=== PATIENT | female | born 1970 | race African-American/Black ===

== ENCOUNTER 2017-02-02 02:08 | Emergency (ER) | payer MEDICAID ==
[~2017-02-02] VITALS: Ht 160 cm; Wt 103.4 kg
[2017-02-02] MEDS ORDERED: cloNIDine HCL 0.1 MG TAB ONE (02:54)
[2017-02-02] MEDS ORDERED: cloNIDine HCL 0.1 MG TAB PO ONE (03:30)
[2017-02-02 04:43] LABS: Albumin 3.3 g/dL (3.4-5.0); Anion Gap 8 (5-15); Aspartate Aminotransferase 17 U/L (15-37); BUN/Creatinine Ratio 14.4; Blood Urea Nitrogen 14 mg/dL (7-18); Calcium 8.5 mg/dL (8.5-10.1); Carbon Dioxide 28 mmol/L (21-32); Chloride 109 mmol/L (98-107); GFR African American 80 mL/min; GFR Non-African American 66 mL/min; Glucose 91 mg/dL (74-106); Magnesium 2.1 mg/dL (1.6-2.6); Potassium 3.4 mmol/L (3.5-5.1); Sodium 145 mmol/L (136-145)
[2017-02-02 04:48] LABS: Alkaline Phosphatase 131 U/L (45-117); Bilirubin, Total 0.3 mg/dL (0.2-1.0); Total Protein 7.5 g/dL (6.4-8.2)
[2017-02-02 04:51] LABS: Basophils # (auto) 0 uL; Basophils % (auto) 0.2 % (0.0-2.0); CONDITION Y; Eosinophils # (auto) 0.2 uL; Eosinophils % (auto) 1.9 % (0.0-7.0); Hemoglobin 13.6 g/dL (12.2-16.2); Lymphocytes # (auto) 3.1 uL; Lymphocytes % (auto) 28.7 % (10.0-50.0); Mean Corpuscular Hemoglobin 28.7 pg (28.0-32.0); Mean Corpuscular Hgb Conc. 33.9 g/dL (32.0-36.0); Mean Corpuscular Volume 84.7 fL (80.0-100.0); Monocytes # (auto) 0.5 uL; Monocytes % (auto) 5.1 % (0.0-12.0); Neutrophils # (auto) 6.9 uL; Neutrophils % (auto) 64.1 % (37.0-80.0); Platelet Count (auto) 246 10^3/uL (140-450); Red Cell Distribution Width 14.4 % (11.6-16.0); White Blood Cell 10.7 10^3/uL (4.4-10.8)
[2017-02-02] MEDS ORDERED: SODIUM CHLORIDE 0.9% 1,000 ML IV ONE (07:43)
[2017-02-02] MEDS ORDERED: LABETALOL HCL 5 MG/ML ML 20ML VIAL IV ONE (07:45)
[2017-02-02] MEDS ORDERED: FUROSEMIDE 20 MG/2 ML VIAL IV ONE (07:45)
[2017-02-02 09:41] LABS: Urine Bilirubin Negative (Negative); Urine Blood TRACE /uL (Negative); Urine Color Yellow (Yellow); Urine Glucose Normal (Normal); Urine Mucus FEW (None Seen); Urine Nitrite Negative (Negative); Urine RBC 3 /hpf (0 - 4); Urine Squamous Epithelial Cell MOD /hpf (<5); Urine pH 5.5 (5.0-8.0)
[2017-02-02 09:55] LABS: Urine Ketone 1+ (Negative)
[2017-02-02] MEDS ORDERED: POTASSIUM CHL 20 Meq TABLET PO ONE (11:00)
[2017-02-02 11:08] VITALS: BP 131/72
== END 2017-02-02 11:10 | disposition home or self-care (01) ==
LOC: ER 02:09
DX: I10 Essential (primary) hypertension (principal); M62.830 Muscle spasm of back; R51 Headache; E44.1 Mild protein-calorie malnutrition; Z68.41 Body mass index [BMI] 40.0-44.9, adult; E87.6 Hypokalemia; Z90.49 Acquired absence of other specified parts of digestive tract; Z90.710 Acquired absence of both cervix and uterus
CPT/HCPCS: 36415; 70450; 71020; 80053; 81001; 83735; 84484; 85025; 93005; 94761; 96361; 96374; 99285; J1940; J7030

== ENCOUNTER 2023-01-24 11:11 | Emergency (ER) | payer MEDICAID ==
[~2023-01-24] VITALS: Ht 160 cm; Wt 100.4 kg
[2023-01-24] MEDS ORDERED: SODIUM CHLORIDE 0.9% 1,000 ML IV ONE (11:45)
[2023-01-24 12:18] LABS: Basophils # (auto) 0.1 10 ^3/uL (0-0.2); Basophils % (auto) 0.8 % (0.0-2.0); Eosinophils # (auto) 0.2 10 ^3/uL (0-0.8); Eosinophils % (auto) 1.8 % (0.0-7.0); Hematocrit 45.6 % (36.0-46.0); Hemoglobin 15.1 g/dL (12.2-16.2); Lymphocytes # (auto) 3.2 10 ^3/uL (0.4-5.4); Lymphocytes % (auto) 27.9 % (10.0-50.0); Mean Corpuscular Hgb Conc. 33.1 g/dL (32.0-36.0); Mean Corpuscular Volume 84.5 fL (80.0-100.0); Monocytes # (auto) 0.4 10 ^3/uL (0-1.3); Monocytes % (auto) 3.9 % (0.0-12.0); Neutrophils # (auto) 7.4 10 ^3/uL (1.6-8.6); Neutrophils % (auto) 65.6 % (37.0-80.0); Red Cell Distribution Width 14.1 % (11.8-14.3); White Blood Cell 11.3 10^3/uL (4.4-10.8)
[2023-01-24 12:59] LABS: Potassium 3.9 mmol/L (3.5-5.1)
[2023-01-24 13:08] LABS: Albumin 3.6 g/dL (3.4-5.0); BUN/Creatinine Ratio 10.5 (10.0-20.0); Bilirubin, Total 0.4 mg/dL (0.2-1.0); Calcium 9.1 mg/dL (8.5-10.1); Magnesium 2.8 mg/dL (1.6-2.6); Total Protein 7.1 g/dL (6.4-8.2)
[2023-01-24 14:43] LABS: Urine Bacteria FEW /hpf (None Seen); Urine Blood Negative /uL (Negative); Urine Specific Gravity 1.008 (1.001-1.035); Urine WBC <1 /hpf (0 - 5)
[2023-01-24 16:20] VITALS: BP 142/67; PULSE 74; RESP 20; TEMP 98; O2SAT 97
== END 2023-01-24 16:33 | disposition home or self-care (01) ==
LOC: EDBD 11:11 → ER 11:11 → EDUNIT# 11:11 → ER 16:28
DX: R55 Syncope and collapse (principal); I11.0 Hypertensive heart disease with heart failure; I50.9 Heart failure, unspecified; Z90.49 Acquired absence of other specified parts of digestive tract; Z90.710 Acquired absence of both cervix and uterus; Z87.891 Personal history of nicotine dependence
CPT/HCPCS: 36415; 71045; 80053; 81001; 83735; 83880; 84484; 85025; 93005; 96360; 99285; J7030

== ENCOUNTER 2023-07-21 12:57 | Emergency (ER) | payer MEDICAID ==
[~2023-07-21] VITALS: Ht 165.1 cm; Wt 102.0 kg
[2023-07-21 13:28] LABS: Urine Epithelial Cast None Seen /hpf (<5)
[2023-07-21 13:53] LABS: Basophils # (auto) 0 10 ^3/uL (0-0.2); Basophils % (auto) 0.4 % (0.0-2.0); Eosinophils # (auto) 0.1 10 ^3/uL (0-0.8); Eosinophils % (auto) 1.4 % (0.0-7.0); Hematocrit 43.4 % (36.0-46.0); Hemoglobin 14.5 g/dL (12.2-16.2); Lymphocytes % (auto) 30.7 % (10.0-50.0); Mean Corpuscular Hemoglobin 27.9 pg (28.0-32.0); Mean Corpuscular Hgb Conc. 33.3 g/dL (32.0-36.0); Mean Corpuscular Volume 83.7 fL (80.0-100.0); Monocytes # (auto) 0.4 10 ^3/uL (0-1.3); Monocytes % (auto) 4.1 % (0.0-12.0); Neutrophils # (auto) 6.2 10 ^3/uL (1.6-8.6); Neutrophils % (auto) 63.4 % (37.0-80.0); Nucleated Red Blood Cells % 0.1 %; Red Blood Cells 5.18 10^6/uL (4.0-5.20); Red Cell Distribution Width 13.7 % (11.8-14.3); White Blood Cell 9.8 10^3/uL (4.4-10.8)
[2023-07-21 13:55] LABS: Urine Bacteria FEW /hpf (None Seen); Urine Blood 1+ /uL (Negative); Urine Clarity Clear (Clear); Urine Color Yellow (Yellow); Urine Protein, UAD Negative (Negative); Urine Specific Gravity 1.019 (1.001-1.035); Urine Urobilinogen Normal (Negative); Urine WBC 1 /hpf (0 - 5)
[2023-07-21 14:01] LABS: Chloride 109 mmol/L (98-107); Potassium 3.9 mmol/L (3.5-5.1); Sodium 141 mmol/L (136-145)
[2023-07-21 14:02] LABS: Anion Gap 5 (5-15); Carbon Dioxide 27 mmol/L (20-30)
[2023-07-21 14:03] LABS: Calcium 9.3 mg/dL (8.7-10.4)
[2023-07-21 14:07] LABS: BUN/Creatinine Ratio 11.1 (10.0-20.0); Blood Urea Nitrogen 8 mg/dL (9-23); Glucose 86 mg/dL (74-106)
[2023-07-21] MEDS ORDERED: KETOROLAC TROMETH 30 MG/ML 1ML VIAL IV ONE (14:15)
[2023-07-21] MEDS ORDERED: ONDANSETRON HCL 4 MG/2 ML VIAL IV ONE (14:15)
[2023-07-21] MEDS ORDERED: CEPH250C PO (17:07)
[2023-07-21] MEDS ORDERED: IBU600T PO (17:08)
[2023-07-21 17:47] VITALS: BP 162/71; PULSE 78; RESP 18; TEMP 97.8; O2SAT 100
== END 2023-07-21 17:50 | disposition home or self-care (01) ==
LOC: ER 12:57
DX: R31.9 Hematuria, unspecified (principal); I11.0 Hypertensive heart disease with heart failure; I50.9 Heart failure, unspecified; F17.210 Nicotine dependence, cigarettes, uncomplicated; Z86.2 Personal history of diseases of the blood and blood-forming organs and certain disorders involving the immune mechanism; Z98.890 Other specified postprocedural states
CPT/HCPCS: 36415; 74176; 80048; 81001; 85025; 96374; 96375; 99285; J1885; J2405

== ENCOUNTER 2023-10-31 14:56 | Emergency (ER) | payer MEDICAID ==
[~2023-10-31] VITALS: Ht 160 cm; Wt 100.4 kg
[~2023-10-31 14:56] MED LIST: CEPH250C PO; IBU600T PO
[2023-10-31 15:31] LABS: Basophils # (auto) 0 10 ^3/uL (0-0.2); Basophils % (auto) 0.3 % (0.0-2.0); Eosinophils # (auto) 0.2 10 ^3/uL (0-0.8); Eosinophils % (auto) 1.5 % (0.0-7.0); Hematocrit 45.5 % (36.0-46.0); Hemoglobin 14.8 g/dL (12.2-16.2); Lymphocytes # (auto) 4.1 10 ^3/uL (0.4-5.4); Lymphocytes % (auto) 34.9 % (10.0-50.0); Mean Corpuscular Hemoglobin 27.5 pg (28.0-32.0); Mean Corpuscular Hgb Conc. 32.6 g/dL (32.0-36.0); Mean Corpuscular Volume 84.4 fL (80.0-100.0); Monocytes # (auto) 0.7 10 ^3/uL (0-1.3); Monocytes % (auto) 5.9 % (0.0-12.0); Neutrophils # (auto) 6.7 10 ^3/uL (1.6-8.6); Neutrophils % (auto) 57.4 % (37.0-80.0); Nucleated Red Blood Cells % 0.1 %; Red Blood Cells 5.38 10^6/uL (4.0-5.20); Red Cell Distribution Width 14.1 % (11.8-14.3); White Blood Cell 11.7 10^3/uL (4.4-10.8)
[2023-10-31 15:49] LABS: INR 0.95 (0.9-1.15); Partial Thromboplastin Time 28.8 SEC (24.5-34.5); Prothrombin Time 10.1 sec (9.3-11.8)
[2023-10-31 15:52] LABS: Alanine Aminotransferase 14 U/L (7-40); Albumin 4.3 g/dL (3.2-4.8); Alkaline Phosphatase 133 U/L (46-116); Anion Gap 8 (5-15); Aspartate Aminotransferase 25 U/L (13-40); BUN/Creatinine Ratio 18.1 (10.0-20.0); Blood Urea Nitrogen 13 mg/dL (9-23); Calcium 9.9 mg/dL (8.5-10.1); Carbon Dioxide 27 mmol/L (20-30); Chloride 107 mmol/L (98-107); Glucose 82 mg/dL (74-106); Sodium 142 mmol/L (136-145)
[2023-10-31 15:53] LABS: Bilirubin, Total 0.3 mg/dL (0.2-1.0); Total Protein 6.9 g/dL (5.7-8.2)
[2023-10-31 16:00] VITALS: PULSE 70; RESP 18; O2SAT 98
[2023-10-31 16:10] LABS: Urine Bacteria None Seen /hpf (None Seen)
[2023-10-31 16:24] LABS: Urine Blood Negative /uL (Negative); Urine Clarity Clear (Clear); Urine Color Light-Yellow (Yellow); Urine Protein, UAD Negative (Negative); Urine Specific Gravity 1.023 (1.001-1.035); Urine Urobilinogen Normal (Negative); Urine WBC <1 /hpf (0 - 5)
[2023-10-31] MEDS: LORazepam 0.5 MG TAB PO ONE (16:37)
[2023-10-31 18:00] VITALS: BP 123/59; PULSE 66; RESP 20; O2SAT 100
== END 2023-10-31 18:47 | disposition home or self-care (01) ==
LOC: ER 14:56
DX: F41.8 Other specified anxiety disorders (principal); R07.89 Other chest pain; I11.0 Hypertensive heart disease with heart failure; I50.9 Heart failure, unspecified; F17.210 Nicotine dependence, cigarettes, uncomplicated; Z86.2 Personal history of diseases of the blood and blood-forming organs and certain disorders involving the immune mechanism; Z90.49 Acquired absence of other specified parts of digestive tract; Z90.710 Acquired absence of both cervix and uterus; Z79.1 Long term (current) use of non-steroidal anti-inflammatories (NSAID); Z79.899 Other long term (current) drug therapy
CPT/HCPCS: 36415; 71045; 80053; 81001; 84484; 85025; 85610; 85730; 93005

== ENCOUNTER 2023-12-01 06:30 | Inpatient (IN) | payer MEDICAID ==
[~2023-12-01] VITALS: Ht 160 cm; Wt 105.6 kg
[2023-12-01] VITALS (20 sets, daily range): BP systolic 108–165; BP diastolic 56–92; PULSE 50–74; RESP 12–20; TEMP 97.5–98.1; O2SAT 98–100
[~2023-12-01 06:30] MED LIST changes: +AMLO1TAB23 PO; +ASPI-543 PO; -CEPH250C PO; +HYDR-4798 PO; +HYDRX10T PO; -IBU600T PO; +LOSA-534 PO; +METO-158 PO; +NITR0.4S29 SL; +POTA8TAB38 PO; +TRIA37.586 PO
[2023-12-01] MEDS: LIDOCAINE 2%HCL (LOCAL ANESTH.) INJ 20ML MDV ONE (07:32)
[2023-12-01] MEDS: IOHEXOL 350 MG/ML 100ML IJ ONE (07:32)
[2023-12-01] MEDS: HEPARIN IN NS 1000Units/500mL 1,500 ML ONE (07:32)
[2023-12-01] MEDS: ANGIOMAX 250 MG VIAL IV ONE (08:04)
[2023-12-01] MEDS: VERAPAMIL 2.5MG/ML INJ 2ML VIAL IV ONE (08:04)
[2023-12-01] MEDS: HEPARIN SODIUM (PORCINE) 5000 UNITS/ML 1ML VIAL ONE (08:04)
[2023-12-01] MEDS: fentaNYL CITRATE 100 MCG/2 ML VL ONE (08:05)
[2023-12-01] MEDS: SODIUM CHL 0.9% 50 ML ONE (08:05)
[2023-12-01] MEDS: MIDAZOLAM HCL 2MG/2ML 2ml VIAL (1mg/ml) ONE (08:05)
[2023-12-01] MEDS: IODIXANOL 320MG/ML 100ML BTL IV ONE (09:18)
[2023-12-01] MEDS: ATROPINE SULF 1 MG/10ml SYR ONE (09:18)
[2023-12-01] MEDS: TICAGRELOR 90 MG TAB ONE (09:18)
[2023-12-01] MEDS: HYDROmorphone HCL 2 MG/ML VL/or syr ONE (09:19)
[2023-12-01] MEDS: hydrALAZINE HCL 20 MG/ML VL ONE (09:19)
[2023-12-01] MEDS: NITROGLYCERIN 0.4MG/DOSE SPRAY 4.9GM ONE (09:19)
[2023-12-01] MEDS: ASPirin 325 MG TAB ONE (09:19)
[2023-12-01] MEDS ORDERED: ALBUTEROL SULF 2.5 MG/0.5ML(0.5%) NEB SOLN NEB PRN (10:00)
[2023-12-01] MEDS: ASPirin-EC 81 mg tab PO SCH (10:00)
[2023-12-01] MEDS ORDERED: IPRATROPIUM BROM 0.5 MG/2.5ML INH SOL NEB PRN (10:00)
[2023-12-01] MEDS: LOSARTAN POTASSIUM 50 MG TAB PO SCH (10:40)
[2023-12-01] MEDS: HYDROcodone-ACET 10/325MG TAB PO PRN (10:40)
[2023-12-01] MEDS: SODIUM CHLORIDE 0.9% 1,000 ML IV SCH (11:29)
[2023-12-01] MEDS: hydrOXYzine HCL 10 MG TAB PO SCH (14:32)
[2023-12-01] MEDS: ONDANSETRON HCL 4 MG/2 ML VIAL IV PRN (18:05)
[2023-12-01] MEDS: MORPHINE SULFATE INJ 2 MG/ml SYRG IV PRN (18:06)
[2023-12-01] MEDS: TICAGRELOR 90 MG TAB PO SCH (21:21)
[2023-12-01] MEDS: ATORVASTATIN 20 MG TAB PO SCH (21:22)
[2023-12-01] MEDS: THROAT LOZENGES(CEPASTAT) MT PRN (22:16)
[2023-12-02] VITALS (9 sets, daily range): BP systolic 107–148; BP diastolic 48–69; PULSE 56–64; RESP 18–20; TEMP 36.8; O2SAT 96–100
[2023-12-02] MEDS: NITROGLYCERIN 0.4 MG SL TAB SL PRN (04:02)
[2023-12-02] MEDS: ACETAMINOPHEN 500 MG TAB PO PRN (04:27)
[2023-12-02 06:53] LABS: Hematocrit 39.8 % (36.0-46.0); Hemoglobin 13.3 g/dL (12.2-16.2)
[2023-12-02 07:04] LABS: Chloride 109 mmol/L (98-107); Potassium 3.8 mmol/L (3.5-5.1); Sodium 141 mmol/L (136-145)
[2023-12-02 07:05] LABS: Anion Gap 7 (5-15); Calcium 9.1 mg/dL (8.5-10.1); Carbon Dioxide 25 mmol/L (20-30)
[2023-12-02 07:10] LABS: Blood Urea Nitrogen 12 mg/dL (9-23); Glucose 97 mg/dL (74-106); Triglycerides 95 mg/dL (< 150)
[2023-12-02 07:11] LABS: LDL Cholesterol 135 mg/dL (< 100)
[2023-12-02 07:12] LABS: Cholesterol 212 mg/dL (< 200); HDL Cholesterol 56 mg/dL (40-59)
[2023-12-02] MEDS: METOPROLOL TARTRATE 50 MG TAB PO SCH (10:00)
[2023-12-02] MEDS: ASPirin 81 mg TAB PO SCH (10:13)
[2023-12-02] MEDS: MORPHINE SULFATE INJ 2 MG/ml SYRG IV PRN (15:10)
[2023-12-02] MEDS ORDERED: ASPI1TAB20 PO (15:31)
[2023-12-02] MEDS ORDERED: TICA90TA PO (15:31)
[2023-12-02] MEDS ORDERED: ATOR40TA52 PO (15:31)
[2023-12-02] MEDS ORDERED: ALBU108A5 INH (16:40)
[2023-12-02] MEDS ORDERED: DIVA1TAB59 PO (16:40)
[2023-12-02] MEDS ORDERED: ALBU0.08 NEB (16:40)
[2023-12-02] MEDS ORDERED: CHOL100029 PO (16:40)
== END 2023-12-02 19:06 | disposition home or self-care (01) | DRG 175 ==
LOC: CATH 06:30 → TELE 10:05 → TELE-WESTW 13:30
PROVIDERS: ADMIT Nurse Practitioner Acute Care; ATTEND Nurse Practitioner Acute Care
PROC: 027035Z Dilation of Coronary Artery, One Artery with Two Drug-eluting Intraluminal Devices, Percutaneous Approach (ICD-10-PCS; principal; 2023-12-01)
PROC: 4A023N7 Measurement of Cardiac Sampling and Pressure, Left Heart, Percutaneous Approach (ICD-10-PCS; 2023-12-01)
PROC: B211YZZ Fluoroscopy of Multiple Coronary Arteries using Other Contrast (ICD-10-PCS; 2023-12-01)
DX: I25.110 Atherosclerotic heart disease of native coronary artery with unstable angina pectoris (principal); E66.9 Obesity, unspecified; I10 Essential (primary) hypertension; E78.5 Hyperlipidemia, unspecified; J44.9 Chronic obstructive pulmonary disease, unspecified; F31.9 Bipolar disorder, unspecified; F17.210 Nicotine dependence, cigarettes, uncomplicated; Z82.49 Family history of ischemic heart disease and other diseases of the circulatory system; Z63.4 Disappearance and death of family member; Z79.02 Long term (current) use of antithrombotics/antiplatelets; Z68.41 Body mass index [BMI] 40.0-44.9, adult
CPT/HCPCS: 36415; 80048; 80061; 85014; 85018; 92928; 93005; 93458; 99152; 99153; G0378; J2250; J2405; Q9967

== ENCOUNTER 2023-12-05 02:43 | Emergency (ER) | payer MEDICAID ==
[~2023-12-05] VITALS: Ht 160 cm; Wt 101.0 kg
[~2023-12-05 02:43] MED LIST changes: +ALBU0.08 NEB; +ALBU108A5 INH; -ASPI-543 PO; +ASPI1TAB20 PO; +ATOR40TA52 PO; +CHOL100029 PO; +DIVA1TAB59 PO; +TICA90TA PO
[2023-12-05 03:05] VITALS: BP 171/94; PULSE 75; RESP 18; O2SAT 99
[2023-12-06] MEDS ORDERED: ALPR0.25 PO ×2 (17:46→17:58)
[2023-12-06] MEDS ORDERED: PANT40TA2 PO (17:46)
[2023-12-06] MEDS ORDERED: ALPR0.5T PO (19:26)
[2023-12-06] MEDS ORDERED: OMEP-335 PO (19:28)
[2023-12-07] MEDS ORDERED: HYDR-3682 PO (15:38)
== END 2023-12-05 04:00 | disposition left against medical advice (07) ==
LOC: ER 02:43
DX: R07.9 Chest pain, unspecified (principal); F41.9 Anxiety disorder, unspecified; I11.0 Hypertensive heart disease with heart failure; I50.9 Heart failure, unspecified; F17.210 Nicotine dependence, cigarettes, uncomplicated; Z90.49 Acquired absence of other specified parts of digestive tract; Z90.710 Acquired absence of both cervix and uterus
CPT/HCPCS: 93005

== ENCOUNTER 2023-12-05 20:10 | Inpatient (IN) | payer MEDICAID ==
[~2023-12-05] VITALS: Ht 160 cm; Wt 105.0 kg
[2023-12-05 22:04] LABS: Basophils # (auto) 0.1 10 ^3/uL (0-0.2); Basophils % (auto) 0.5 % (0.0-2.0); Eosinophils # (auto) 0.3 10 ^3/uL (0-0.8); Eosinophils % (auto) 2.5 % (0.0-7.0); Hematocrit 42.9 % (36.0-46.0); Hemoglobin 14.2 g/dL (12.2-16.2); Lymphocytes % (auto) 25.4 % (10.0-50.0); Mean Corpuscular Hemoglobin 27.9 pg (28.0-32.0); Mean Corpuscular Hgb Conc. 33.2 g/dL (32.0-36.0); Mean Corpuscular Volume 84.2 fL (80.0-100.0); Monocytes # (auto) 0.7 10 ^3/uL (0-1.3); Monocytes % (auto) 5.6 % (0.0-12.0); Neutrophils # (auto) 7.7 10 ^3/uL (1.6-8.6); White Blood Cell 11.7 10^3/uL (4.4-10.8)
[2023-12-05 22:10] LABS: Chloride 109 mmol/L (98-107); Potassium 3.8 mmol/L (3.5-5.1); Sodium 142 mmol/L (136-145)
[2023-12-05 22:11] LABS: Anion Gap 8 (5-15); Calcium 9.9 mg/dL (8.7-10.4); Carbon Dioxide 25 mmol/L (20-30)
[2023-12-05 22:16] LABS: BUN/Creatinine Ratio 14.8 (10.0-20.0); Blood Urea Nitrogen 12 mg/dL (9-23); Glucose 88 mg/dL (74-106); Lipase 31 U/L (12-53)
[2023-12-05 22:23] LABS: INR 0.97 (0.9-1.15); Prothrombin Time 10.3 sec (9.3-11.8)
[2023-12-06 00:13] VITALS: PULSE 65; RESP 12; O2SAT 98
[2023-12-06] MEDS: ALPRAZolam 0.5 MG TAB PO ONE (00:19)
[2023-12-06] MEDS ORDERED: DOCUSATE SOD 100 MG CAP PO PRN (01:15)
[2023-12-06] MEDS ORDERED: HYDROcodone-ACET 5/325MG TAB PO PRN (01:15)
[2023-12-06] MEDS ORDERED: ACETAMINOPHEN 325 MG TAB PO PRN (01:15)
[2023-12-06] MEDS ORDERED: NITROGLYCERIN 0.4 MG SL TAB SL PRN (01:15)
[2023-12-06] MEDS ORDERED: hydrALAZINE HCL 20 MG/ML VL IV PRN (01:15)
[2023-12-06 04:45] LABS: Basophils # (auto) 0 10 ^3/uL (0-0.2); Basophils % (auto) 0.4 % (0.0-2.0); Eosinophils # (auto) 0.3 10 ^3/uL (0-0.8); Eosinophils % (auto) 3.1 % (0.0-7.0); Hematocrit 38.6 % (36.0-46.0); Lymphocytes # (auto) 2.9 10 ^3/uL (0.4-5.4); Lymphocytes % (auto) 28.5 % (10.0-50.0); Mean Corpuscular Hemoglobin 28.4 pg (28.0-32.0); Mean Corpuscular Hgb Conc. 33.8 g/dL (32.0-36.0); Mean Corpuscular Volume 84.2 fL (80.0-100.0); Monocytes # (auto) 0.6 10 ^3/uL (0-1.3); Monocytes % (auto) 5.9 % (0.0-12.0); Neutrophils # (auto) 6.3 10 ^3/uL (1.6-8.6); Neutrophils % (auto) 62.1 % (37.0-80.0); Red Blood Cells 4.58 10^6/uL (4.0-5.20); Red Cell Distribution Width 13.5 % (11.8-14.3); White Blood Cell 10.1 10^3/uL (4.4-10.8)
[2023-12-06 04:51] LABS: Chloride 111 mmol/L (98-107); Potassium 3.6 mmol/L (3.5-5.1); Sodium 144 mmol/L (136-145)
[2023-12-06 04:52] LABS: Anion Gap 8 (5-15); Calcium 9.5 mg/dL (8.7-10.4); Carbon Dioxide 25 mmol/L (20-30)
[2023-12-06 04:57] LABS: BUN/Creatinine Ratio 17.1 (10.0-20.0); Blood Urea Nitrogen 12 mg/dL (9-23); Glucose 107 mg/dL (74-106)
[2023-12-06] MEDS: LORazepam 0.5 MG TAB PO PRN (05:43)
[2023-12-06 07:30] VITALS: PULSE 57; RESP 14; TEMP 98.7; O2SAT 98
[2023-12-06] MEDS: METOPROLOL TARTRATE 25 MG TAB PO SCH (10:38)
[2023-12-06] MEDS: ATORVASTATIN 20 MG TAB PO SCH (10:38)
[2023-12-06] MEDS: amLODIPine BESYLATE 5 MG TAB PO SCH (10:39)
[2023-12-06] MEDS: ASPirin 81 mg TAB PO SCH (10:39)
[2023-12-06] MEDS: ONDANSETRON HCL 4 MG/2 ML VIAL IV PRN (10:40)
[2023-12-06] MEDS: MORPHINE SULFATE INJ 2 MG/ml SYRG IV PRN (10:40)
[2023-12-06 11:59] LABS: Urine Bacteria FEW /hpf (None Seen); Urine Blood Negative /uL (Negative); Urine Clarity Clear (Clear); Urine Color Yellow (Yellow); Urine Mucus FEW (None Seen); Urine Protein, UAD TRACE (Negative); Urine Urobilinogen Normal (Negative); Urine WBC 2 /hpf (0 - 5); Urine pH 5.5 (5.0-9.0)
[2023-12-06] MEDS ORDERED: PANT40TA2 PO (17:46)
[2023-12-06] MEDS ORDERED: ALPR0.25 PO ×2 (17:46→17:58)
[2023-12-06 18:40] VITALS: BP 126/53; PULSE 56; RESP 19; O2SAT 99
[2023-12-06] MEDS ORDERED: ALPR0.5T PO (19:26)
[2023-12-06] MEDS ORDERED: OMEP-335 PO (19:28)
[2023-12-06] MEDS ORDERED: TICAGRELOR 90 MG TAB PO SCH (22:00)
[2023-12-07] MEDS ORDERED: HYDR-3682 PO (15:38)
== END 2023-12-06 18:40 | disposition home or self-care (01) | DRG 190 ==
LOC: ER 20:10 → TELE 12-06 01:29 → UNDODEPER 12-06 18:32
PROVIDERS: ADMIT Internal Medicine; ATTEND Internal Medicine
DX: I25.10 Atherosclerotic heart disease of native coronary artery without angina pectoris (principal); I21.A1 Myocardial infarction type 2; E11.9 Type 2 diabetes mellitus without complications; I16.0 Hypertensive urgency; F41.9 Anxiety disorder, unspecified; E66.01 Morbid (severe) obesity due to excess calories; F17.210 Nicotine dependence, cigarettes, uncomplicated; J44.9 Chronic obstructive pulmonary disease, unspecified; E78.5 Hyperlipidemia, unspecified; Z95.5 Presence of coronary angioplasty implant and graft; Z90.710 Acquired absence of both cervix and uterus; Z79.82 Long term (current) use of aspirin; Z90.49 Acquired absence of other specified parts of digestive tract; Z79.4 Long term (current) use of insulin; Z68.41 Body mass index [BMI] 40.0-44.9, adult
CPT/HCPCS: 36415; 80048; 81001; 83690; 84484; 85025; 85610; 93306; G0378; J2405

== ENCOUNTER 2024-01-24 06:36 | Emergency (ER) | payer MEDICAID ==
[~2024-01-24] VITALS: Ht 165.1 cm; Wt 104.8 kg
[~2024-01-24 06:36] MED LIST changes: +ALPR0.25 PO; +ALPR0.5T PO; +HYDR-3682 PO; +OMEP-335 PO; +PANT40TA2 PO
[2024-01-24] MEDS: SODIUM CHLORIDE 0.9% 1,000 ML IV ONE (07:00)
[2024-01-24 07:29] LABS: Basophils # (auto) 0 10 ^3/uL (0-0.2); Basophils % (auto) 0.4 % (0.0-2.0); Eosinophils # (auto) 0.2 10 ^3/uL (0-0.8); Eosinophils % (auto) 1.9 % (0.0-7.0); Hematocrit 42.2 % (36.0-46.0); Hemoglobin 14.5 g/dL (12.2-16.2); Lymphocytes # (auto) 2.7 10 ^3/uL (0.4-5.4); Lymphocytes % (auto) 26.2 % (10.0-50.0); Mean Corpuscular Hemoglobin 28.8 pg (28.0-32.0); Mean Corpuscular Hgb Conc. 34.4 g/dL (32.0-36.0); Mean Corpuscular Volume 83.7 fL (80.0-100.0); Monocytes # (auto) 0.5 10 ^3/uL (0-1.3); Monocytes % (auto) 4.7 % (0.0-12.0); Neutrophils # (auto) 6.8 10 ^3/uL (1.6-8.6); Neutrophils % (auto) 66.8 % (37.0-80.0); Nucleated Red Blood Cells % 0.1 %; Red Blood Cells 5.04 10^6/uL (4.0-5.20); Red Cell Distribution Width 13.6 % (11.8-14.3); White Blood Cell 10.1 10^3/uL (4.4-10.8)
[2024-01-24 07:35] LABS: Alanine Aminotransferase 16 U/L (7-40); Albumin 4.2 g/dL (3.2-4.8); Alkaline Phosphatase 137 U/L (46-116); Anion Gap 9 (5-15); Aspartate Aminotransferase 12 U/L (13-40); BUN/Creatinine Ratio 10.1 (10.0-20.0); Blood Urea Nitrogen 8 mg/dL (9-23); Calcium 9.4 mg/dL (8.7-10.4); Carbon Dioxide 27 mmol/L (20-30); Chloride 105 mmol/L (98-107); Glucose 123 mg/dL (74-106); Potassium 3.5 mmol/L (3.5-5.1); Sodium 141 mmol/L (136-145)
[2024-01-24 07:36] LABS: Bilirubin, Total 0.5 mg/dL (0.2-1.0); Total Protein 7.3 g/dL (5.7-8.2)
[2024-01-24 07:59] VITALS: O2SAT 96
[2024-01-24 08:01] VITALS: PULSE 64
[2024-01-24] MEDS: NITROGLYCERIN 0.4 MG SL TAB SL ONE (08:10)
[2024-01-24] MEDS: ONDANSETRON HCL 4 MG/2 ML VIAL IV ONE (08:10)
[2024-01-24] MEDS: cefTRIAXone 1GM/50ML D5W 50 ML IV ONE (08:11)
[2024-01-24] MEDS: SODIUM CHLORIDE 0.9% 1,000 ML IVB ONE (08:12)
[2024-01-24] MEDS: MORPHINE SULFATE 4 MG/ML SYR/VIAL IV ONE (08:13)
[2024-01-24 12:13] LABS: Urine Bacteria FEW /hpf (None Seen); Urine Blood Negative /uL (Negative); Urine Clarity Clear (Clear); Urine Color Light-Yellow (Yellow); Urine Protein, UAD Negative (Negative); Urine Urobilinogen Normal (Negative); Urine WBC 1 /hpf (0 - 5)
[2024-01-24] MEDS: IOHEXOL 350 MG/ML 100ML IJ ONE (12:21)
[2024-01-24 15:04] VITALS: BP 172/91; PULSE 50; RESP 18
[2024-01-24] MEDS ORDERED: TRAM50TA2 PO (15:26)
[2024-01-24] MEDS ORDERED: CLIN150C PO (15:26)
== END 2024-01-24 16:27 | disposition home or self-care (01) ==
LOC: ER 06:36
DX: I20.9 Angina pectoris, unspecified (principal); R07.89 Other chest pain; K04.7 Periapical abscess without sinus; R79.1 Abnormal coagulation profile; I11.0 Hypertensive heart disease with heart failure; I50.9 Heart failure, unspecified; Z98.61 Coronary angioplasty status; Z86.2 Personal history of diseases of the blood and blood-forming organs and certain disorders involving the immune mechanism; Z90.49 Acquired absence of other specified parts of digestive tract; Z90.710 Acquired absence of both cervix and uterus; Z88.1 Allergy status to other antibiotic agents; Z79.899 Other long term (current) drug therapy
CPT/HCPCS: 36415; 71046; 71275; 80053; 81001; 83735; 84484; 85025; 85379; 93005; 93971; 96361; 96365; 96375; 99285; J0696; J2270; J2405; J7030; Q9967

== ENCOUNTER 2024-03-21 20:57 | Inpatient (IN) | payer MEDICAID ==
[~2024-03-21] VITALS: Ht 160 cm; Wt 109.9 kg
[~2024-03-21 20:57] MED LIST changes: +ATOR80TA PO; +CHOL1TAB30 PO; +CLIN150C PO; +CLOP75TA70 PO; +EVOL140I2 SC; +EZET10TA22 PO; +METO1TAB77 PO; +OMEP1CAP70 PO; +RISP1TAB63 PO; +TRAM50TA2 PO
[2024-03-21 21:38] LABS: Basophils # (auto) 0.1 10 ^3/uL (0-0.2); Basophils % (auto) 0.6 % (0.0-2.0); Eosinophils # (auto) 0.2 10 ^3/uL (0-0.8); Eosinophils % (auto) 2.5 % (0.0-7.0); Hematocrit 43.4 % (36.0-46.0); Hemoglobin 14.9 g/dL (12.2-16.2); Lymphocytes # (auto) 3.3 10 ^3/uL (0.4-5.4); Lymphocytes % (auto) 34.1 % (10.0-50.0); Mean Corpuscular Hgb Conc. 34.3 g/dL (32.0-36.0); Mean Corpuscular Volume 84.8 fL (80.0-100.0); Monocytes # (auto) 0.7 10 ^3/uL (0-1.3); Monocytes % (auto) 6.8 % (0.0-12.0); Neutrophils # (auto) 5.5 10 ^3/uL (1.6-8.6); Nucleated Red Blood Cells % 0.1 %; Platelet Count (auto) 200 10^3/uL (140-450); Red Blood Cells 5.13 10^6/uL (4.0-5.20); Red Cell Distribution Width 14.2 % (11.8-14.3); White Blood Cell 9.8 10^3/uL (4.4-10.8)
[2024-03-21 21:53] LABS: Alanine Aminotransferase 14 U/L (7-40); Albumin 4.4 g/dL (3.2-4.8); Alkaline Phosphatase 133 U/L (46-116); Anion Gap 6 (5-15); Aspartate Aminotransferase 14 U/L (13-40); BUN/Creatinine Ratio 13.1 (10.0-20.0); Bilirubin, Total 0.3 mg/dL (0.2-1.0); Blood Urea Nitrogen 13 mg/dL (9-23); Calcium 9.8 mg/dL (8.7-10.4); Carbon Dioxide 25 mmol/L (20-30); Chloride 109 mmol/L (98-107); Glucose 110 mg/dL (74-106); Magnesium 2.2 mg/dL (1.6-2.6); Potassium 3.8 mmol/L (3.5-5.1); Sodium 140 mmol/L (136-145); Total Protein 7.5 g/dL (5.7-8.2)
[2024-03-21 22:09] LABS: INR 0.96 (0.9-1.15); Partial Thromboplastin Time 26.3 SEC (24.5-34.5); Prothrombin Time 10.2 sec (9.3-11.8)
[2024-03-22] MEDS: LABETALOL HCL 20 MG/4 ML VL IV ONE (02:36)
[2024-03-22 02:41] VITALS: PULSE 55; RESP 13; O2SAT 98
[2024-03-22] MEDS ORDERED: MELATONIN 5 MG TAB PO PRN (02:45)
[2024-03-22] MEDS ORDERED: hydrALAZINE HCL 20 MG/ML VL IV PRN (02:45)
[2024-03-22] MEDS: LORazepam 0.5 MG TAB PO ONE (07:00)
[2024-03-22] MEDS: ACETAMINOPHEN 325 MG TAB PO PRN (07:02)
[2024-03-22] MEDS: NITROGLYCERIN 0.4 MG SL TAB SL PRN (07:16)
[2024-03-22] MEDS: ONDANSETRON HCL 4 MG/2 ML VIAL IV PRN (07:49)
[2024-03-22] MEDS: MORPHINE SULFATE INJ 2 MG/ml SYRG IV PRN (07:50)
[2024-03-22 07:52] LABS: Cholesterol 214 mg/dL (< 200)
[2024-03-22 07:53] LABS: LDL Cholesterol 120 mg/dL (< 100)
[2024-03-22 07:54] LABS: Triglycerides 150 mg/dL (< 150)
[2024-03-22 07:55] LABS: HDL Cholesterol 70 mg/dL (40-59)
[2024-03-22 09:00] VITALS: PULSE 62; RESP 14; O2SAT 99
[2024-03-22] MEDS: FAMOTIDINE 20 MG TAB PO SCH (10:13)
[2024-03-22] MEDS: LOSARTAN POTASSIUM 50 MG TAB PO SCH ×2 (10:14→22:46)
[2024-03-22] MEDS: ASPirin 81 mg TAB PO SCH (10:14)
[2024-03-22] MEDS ORDERED: DIVALPROEX SODIUM 250 MG PO SCH (11:00)
[2024-03-22] MEDS: amLODIPine BESYLATE 5 MG TAB PO SCH (13:12)
[2024-03-22] MEDS: METOPROLOL TARTRATE 50 MG TAB PO SCH (22:37)
[2024-03-22] MEDS: ATORVASTATIN 20 MG TAB PO SCH (22:44)
[2024-03-22] MEDS: risperiDONE 1 MG TAB PO SCH (22:46)
[2024-03-23] VITALS (7 sets, daily range): BP systolic 137–162; BP diastolic 57–73; PULSE 59–90; RESP 16–18; TEMP 97.7–98.2; O2SAT 96–100
[2024-03-23 06:16] LABS: Basophils # (auto) 0 10 ^3/uL (0-0.2); Basophils % (auto) 0.3 % (0.0-2.0); Eosinophils # (auto) 0.2 10 ^3/uL (0-0.8); Hematocrit 39.8 % (36.0-46.0); Hemoglobin 13.5 g/dL (12.2-16.2); Lymphocytes # (auto) 3.1 10 ^3/uL (0.4-5.4); Lymphocytes % (auto) 38.8 % (10.0-50.0); Mean Corpuscular Hemoglobin 28.6 pg (28.0-32.0); Mean Corpuscular Volume 84.2 fL (80.0-100.0); Monocytes # (auto) 0.5 10 ^3/uL (0-1.3); Monocytes % (auto) 5.9 % (0.0-12.0); Neutrophils # (auto) 4.1 10 ^3/uL (1.6-8.6); Nucleated Red Blood Cells % 0.1 %; Platelet Count (auto) 163 10^3/uL (140-450); Red Blood Cells 4.73 10^6/uL (4.0-5.20); White Blood Cell 7.9 10^3/uL (4.4-10.8)
[2024-03-23 06:35] LABS: Calcium 9.3 mg/dL (8.7-10.4); Chloride 108 mmol/L (98-107); Potassium 4.1 mmol/L (3.5-5.1); Sodium 141 mmol/L (136-145)
[2024-03-23 06:36] LABS: Anion Gap 7 (5-15); Carbon Dioxide 26 mmol/L (20-30)
[2024-03-23 06:41] LABS: BUN/Creatinine Ratio 14.1 (10.0-20.0); Blood Urea Nitrogen 11 mg/dL (9-23); Glucose 82 mg/dL (74-106)
[2024-03-23 06:42] LABS: Magnesium 2.1 mg/dL (1.6-2.6)
[2024-03-23] MEDS: ADENOSINE 85 MG in GIVE UN-DILUTED 0 ML IV ONE (08:32)
[2024-03-23] MEDS: EZETIMIBE 10 MG TAB PO SCH ×2 (10:00→15:46)
[2024-03-23] MEDS: CLOPIDOGREL BISULFATE 75 MG TAB PO SCH (12:51)
[2024-03-23] MEDS: CHOLECALCIFEROL (VITD3) 1,000UNIT=25mCg TAB PO SCH (12:54)
[2024-03-23] MEDS ORDERED: TRIAMTERENE/HCTZ 37.5/25 MG CAP/TAB PO ONE (18:15)
[2024-03-23] MEDS: HYDROcodone-ACET 5/325MG TAB PO PRN (18:37)
[2024-03-23] MEDS: hydrALAZINE HCL 25 MG TAB PO SCH (22:13)
[2024-03-23] MEDS: NIFEdipine ER 30 MG TAB PO SCH (22:13)
[2024-03-24 01:00] VITALS: BP 124/71; PULSE 66; RESP 18; TEMP 98.3; O2SAT 97
[2024-03-24 05:00] VITALS: BP 146/85; PULSE 74; RESP 18; TEMP 98.3; O2SAT 97
[2024-03-24 07:30] VITALS: PULSE 89; RESP 19; O2SAT 96
[2024-03-24] MEDS ORDERED: POTA8TAB38 PO (08:53)
[2024-03-24] MEDS ORDERED: NIFE1TAB30 PO (08:53)
[2024-03-24] MEDS ORDERED: TRIA37.586 PO (08:53)
[2024-03-24] MEDS ORDERED: METO1TAB77 PO ×2 (08:53→08:55)
[2024-03-24] MEDS ORDERED: LOSA-534 PO (08:55)
[2024-03-24 09:00] VITALS: BP 129/66; PULSE 69; RESP 18; TEMP 97.5; O2SAT 97
[2024-03-24] MEDS: TRIAMTERENE/HCTZ 37.5/25 MG CAP/TAB PO SCH (09:05)
[2024-03-24 09:43] VITALS: BP 129/66; PULSE 69; RESP 18; TEMP 98.5; O2SAT 98
== END 2024-03-24 10:09 | disposition home or self-care (01) | DRG 199 ==
LOC: ER 20:57 → TELE 03-22 02:43 → TELE-EAST 03-23 10:30
PROVIDERS: ADMIT Nurse Practitioner Family; ATTEND Nurse Practitioner Family
DX: I16.0 Hypertensive urgency (principal); I50.9 Heart failure, unspecified; E11.9 Type 2 diabetes mellitus without complications; I25.10 Atherosclerotic heart disease of native coronary artery without angina pectoris; I11.0 Hypertensive heart disease with heart failure; G89.29 Other chronic pain; J44.9 Chronic obstructive pulmonary disease, unspecified; E66.9 Obesity, unspecified; F17.210 Nicotine dependence, cigarettes, uncomplicated; Z83.3 Family history of diabetes mellitus; Z82.49 Family history of ischemic heart disease and other diseases of the circulatory system; Z82.3 Family history of stroke; Z81.8 Family history of other mental and behavioral disorders; Z90.49 Acquired absence of other specified parts of digestive tract; Z79.02 Long term (current) use of antithrombotics/antiplatelets; Z79.82 Long term (current) use of aspirin; Z79.899 Other long term (current) drug therapy; Z88.8 Allergy status to other drugs, medicaments and biological substances; Z98.61 Coronary angioplasty status; Z87.442 Personal history of urinary calculi; Z90.710 Acquired absence of both cervix and uterus; Z86.73 Personal history of transient ischemic attack (TIA), and cerebral infarction without residual deficits; Z68.41 Body mass index [BMI] 40.0-44.9, adult; Z79.4 Long term (current) use of insulin
CPT/HCPCS: 36415; 71045; 78452; 80048; 80053; 80061; 83735; 83880; 84484; 85025; 85610; 85730; 93005; 93017; G0378; J0153; J2405

== ENCOUNTER 2024-08-25 14:35 | Inpatient (IN) | payer MEDICAID ==
[~2024-08-25] VITALS: Ht 160 cm; Wt 113.1 kg
[~2024-08-25 14:35] MED LIST changes: -ALPR0.25 PO; -ALPR0.5T PO; -AMLO1TAB23 PO; -ATOR40TA52 PO; -CHOL1TAB30 PO; -CLIN150C PO; -HYDR-3682 PO; -METO-158 PO; +NIFE1TAB30 PO; -OMEP-335 PO; -PANT40TA2 PO; -TICA90TA PO; -TRAM50TA2 PO
--- NOTE | 2024-08-25 15:06 | ED.PDOC ---
HPI Comments 54y F who presents to the ED for chief complaint of chest pain. Pt states she has been having chest pain for the past 1 hours. Pt states she was eating lunch and states she felt she had to belch. Pt belched and then had to go to the restroom and states she has bowel movement. Pt states after her bowel movement, she started to have chest pain under her L breast, with pain radiating to the L arm. Pt then immediately came to the ED for further evaluation. Pt states she took 3 nitro and 1 asa prior to ED with no change in pain. Pt states now in the ED, the pain is 10/10, constant, sharp and pressure like in nature, with noted exacerbation of ambulation and no relieving factors. Pt has associated shortness of breath, nausea, but otherwise denies any other symptoms. Pt in the ED, appears distressed. Pt denies any other symptoms at this time. Chief Complaint: Chest Pain Time Seen by MD: 14:57 Primary Care Provider: Garrett Reviewed Notes: Medications, Allergies Allergies: Coded Allergies: Atorvastatin (Verified Allergy, Unknown, 01/24/24) Home Meds Active Scripts Metoprolol Tartrate (Lopressor) 50 Mg Tab, 0.5 TAB PO BID for 30 Days, #30 TAB Prov:JONATHAN BYRD MD 03/24/24 Losartan Potassium (Losartan Potassium) 50 Mg Tab, 2 TAB PO BID for HTN for 30 Days, #120 TAB Prov:JONATHAN BYRD MD 03/24/24 Nifedipine (Nifedipine Er) 60 Mg Tab, 1 TAB PO DAILY, #90 TAB 1 Refill Prov:OJNATHAN BYRD MD 03/24/24 Potassium Chloride (Klor-Con 8) 8 Meq Tab, 8 MEQ PO DAILY for SUPPLEMENT, #30 TAB Prov:JONATHAN BYRD MD 03/24/24 Hydrochlorothiazide W/Triamter (Triamterene/Hydrochloroth) 1 Cap Cap, 1 CAP PO DAILY for EDEMA/HTN, #60 CAP Prov:JONATHAN BYRD MD 03/24/24 Aspirin (Aspir-81) 81 Mg Tab, 1 TAB PO DAILY for 90 Days, #90 TAB 1 Refill Prov:ANNIE JACOBSON NP 12/02/23 Reported Medications Risperidone (Risperidone) 1 Mg Tab, 1 TAB PO BID for 30 Days, #60 03/22/24 Clopidogrel Bisulfate (CLOPIDOGREL) 75 Mg Tab, 1 TAB PO DAILY for 30 Days, #30 03/22/24 Ezetimibe (Zetia) 10 Mg Tab, 1 TAB PO DAILY for 30 Days, #30 03/22/24 Evolocumab (Repatha Sureclick) 140 Mg/Ml Inj, MG SC UD for 30 Days, #2 03/22/24 Omeprazole (Omeprazole Dr) 20 Mg Cap, 1 CAP PO DAILY for 30 Days, #30 03/22/24 Atorvastatin Calcium (Lipitor) 80 Mg Tab, 1 TAB PO DAILY for 30 Days, #30 03/22/24 Albuterol Sulfate (Albuterol Sulfate) 0.083 % Neb, 1 VIAL NEB Q6HR PRN 12/02/23 Albuterol Sulfate (Albuterol Sulfate Hfa) 108 Mcg/Act Aer, 1 PUFF INH Q4HR PRN 12/02/23 Divalproex Sodium (Divalproex Sodium Dr) 500 Mg Tab, 250 MG PO UD Take 1 tablet (250 mg) by mouth every morning and 2 tablets (500 mg) by mouth at bedtime. 12/02/23 Cholecalciferol (Vitamin D) 1,000 Unit Tab, 1 TAB PO DAILY 12/02/23 Nitroglycerin (NTROSTAT SUBLINGUAL) 0.4 Mg Sl, 0.4 MG SL PRN for CHEST PAIN, TAB *MAY REPEAT EVERY 5 MINUTES X 3 TOTAL IF NO RELIEF, INITIATE ANALGESIC THERAPY. NOTIFY PHYSICIAN *Do not crush. 11/28/23 Hydroxyzine Hcl (Hydroxyzine Hcl) 10 Mg Tab, 1 TAB PO BID PRN for ANXIETY for 30 Days, #60 11/28/23 Hydrocodone-Acetaminophen (Hydrocodone Bitartrate/AC 10-325 mg) 1 Tab Tab, 1 TAB PO BIDP PRN for PAIN SCALE 7 THRU 10, TAB 11/28/23 Information Source: Patient Mode of Arrival: Wheelchair Brought in by: self Severity: Moderate Timing: Minutes, Hours Duration: Since onset Prehospital treatment: ASA, NTG Location: Chest (L) Radiation: Shoulder (L), Arm (L) Quality: Sharp, Pressure Onset: At Rest Cardiac Risk Factors: HTN PE Risk Factors: None History of: Similar pain in past Modifying Factors: Exertion, Movement Associated Signs and Symptoms: SOB, N/V Past Medical History PAST MEDICAL HISTORY: Anemia, Angina, Anxiety, CAD, CHF, COPD, HTN, Kidney Stones Past Medical History (Other): DVT Surgical History: Cholecystectomy, Hysterectomy, PTCA STORE MERCHANDISER History: No Pertinent STORE MERCHANDISER History Family History Family History: Reviewed,noncontributory to illness, Unknown Social History Smoker: Cigarettes Alcohol: Denies ETOH Use Drugs: Denies Drug Use Lives In: Home Constitutional: denies: chills, diaphoresis, fatigue, fever, malaise, sweats, weakness, others EENTM: denies: blurred vision, double vision, ear bleeding, ear discharge, ear drainage, ear pain, ear ringing, eye pain, eye redness, hearing loss, mouth pain, mouth swelling, nasal discharge, nose bleeding, nose congestion, nose pain, photophobia, tearing, throat pain, throat swelling, voice changes, others Respiratory: reports: shortness of breath; denies: cough, hemoptysis, orthopnea, SOB at rest, SOB with excertion, stridor, wheezing, others Cardiovascular: reports: chest pain; denies: dizzy spells, diaphoresis, Dyspnea on exertion, edema, irregular heart beat, left arm pain, lightheadedness, palpitations, PND, syncope, others Gastrointestinal: reports: nausea; denies: abdomen distended, abdominal pain, blood streaked bowels, constipated, diarrhea, dysphagia, difficulty swallowing, hematemesis, melena, poor appetite, poor fluid intake, rectal bleeding, rectal pain, vomiting, others Genitourinary: denies: abnormal vagina bleeding, burning, dyspareunia, dysuria, flank pain, frequency, hematuria, incontinence, pain, , vagina discharge, urgency, others Neurological: denies: dizziness, fainting, headache, left sided numbness, left sided weakness, numbness, paresthesia, pre-existing deficit, right sided numbness, right sided weakness, seizure, speech problems, tingling, tremors, weakness, others Musculoskeletal: denies: back pain, gout, joint pain, joint swelling, muscle pain, muscle stiffness, neck pain, others Integumetry: denies: bruises, change in color, change in hair/nails, dryness, laceration, lesions, lumps, rash, wounds, others Allergic/Immunocompromised: denies: Difficulty Healing, Frequent Infections, Hives, Itching, others Hematologic/Lymphatic: denies: anemia, blood clots, easy bleeding, easy bruising, swollen glands, others Endocrine: denies: excessive hunger, excessive sweating, excessive thirst, excessive urination, flushing, intolerance to cold, intolerance to heat, unexplained weight gain, unexplained weight loss, others Psychiatric: denies: anxiety, bipolar disorder, depression, hopeless, panic disorder, schizophrenia, sleepless, suicidal, others All Other Systems: Reviewed and Negative Physical Exam General Appearance: Moderate Distress, Obese HEENT: Normal ENT Inspection, Pharynx Normal, TMs Normal Neck: Full Range of Motion, Non-Tender, Normal, Normal Inspection Respiratory: Chest Non-Tender, Lungs Clear, No Accessory Muscle Use, No Respiratory Distress, Normal Breath Sounds Cardiovascular: No Edema, No JVD, No Murmur, No Gallop, Normal Peripheral Pulses, Regular Rate/Rhythm Breast Exam: Deferred Gastrointestinal: No Organomegaly, Non Tender, No Pulsatile Mass, Normal Bowel Sounds, Soft Genitalia: Deferred Pelvic: Deferred Rectal: Deferred Extremities: No calf tenderness, Normal capillary refill, Normal inspection, Normal range of motion, Non-tender, No pedal edema Musculoskeletal : Apperance: Normal Neurologic: Alert, after school caregiver II-XII nml as Tested, No Motor Deficits, Normal Affect, Normal Mood, No Sensory Deficits Cerebellar Function: Normal Reflexes: Normal Skin: Dry, Normal Color, Warm Lymphatic: No Adenopathy EKG EKG : Pulse Rate (adult): 82 [place]: Normal Cardiac Rhythm: NSR Block: None Hypertrophy: LAE ST: Normal Was a procedure done? Was a procedure done?: No CP Differential Dx Differential Diagnosis: A-fib, A-Flutter, Angina, Anxiety / Panic Attack, Atrial Dysrhythmia, Electrolyte Disorder, Heart Failure, SD, Pulmonary Embolus, PVC's Other Differential Diagnosis acute coronary syndrome Differential Diagnosis: HTN Essential, HTN Accelerated, HTN Encephalopathy, Medical NonCompliance X-Ray, Labs, Meds, VS Vital Signs Date Time Temp Pulse Resp B/P (MAP) Pulse Ox O2 Delivery O2 Flow Rate FiO2 08/25/24 16:52 62 16 163/82 08/25/24 16:21 97.8 69 16 181/92 (121) 99 97.8 08/25/24 16:21 69 16 99 Room Air* 0 21 08/25/24 16:14 69 16 181/92 08/25/24 15:37 69 08/25/24 15:06 82 08/25/24 14:36 98.2 77 20 140/72 (94) 100 Lab Test 08/25/24 15:41 08/25/24 14:52 Range/Units Troponin I High Sensitivity 3 L 3 L </=34 ng/L White Blood Count 9.9 4.4-10.8 10^3/uL Red Blood Count 5.35 H 4.0-5.20 10^6/uL Hemoglobin 14.8 12.2-16.2 g/dL Hematocrit 44.9 36.0-46.0 % Mean Corpuscular Volume 83.9 80.0-100.0 fL Mean Corpuscular Hemoglobin 27.8 L 28.0-32.0 pg Mean Corpuscular Hemoglobin Concent 33.1 32.0-36.0 g/dL Red Cell Distribution Width 14.0 11.8-14.3 % Platelet Count 217 140-450 10^3/uL Mean Platelet Volume 9.2 6.9-10.8 fL Neutrophils (%) (Auto) 60.2 37.0-80.0 % Lymphocytes (%) (Auto) 32.7 10.0-50.0 % Monocytes (%) (Auto) 3.5 0.0-12.0 % Eosinophils (%) (Auto) 3.0 0.0-7.0 % Basophils (%) (Auto) 0.6 0.0-2.0 % Neutrophils # (Auto) 6.0 1.6-8.6 10 ^3/uL Lymphocytes # (Auto) 3.2 0.4-5.4 10 ^3/uL Monocytes # (Auto) 0.4 0-1.3 10 ^3/uL Eosinophils # (Auto) 0.3 0-0.8 10 ^3/uL Basophils # (Auto) 0.1 0-0.2 10 ^3/uL Nucleated Red Blood Cells 0.1 % D-Dimer, Quantitative 0.39 0.0-0.49 mg/L FEU Sodium Level 142 136-145 mmol/L Potassium Level 3.8 3.5-5.1 mmol/L Chloride Level 107 98-107 mmol/L Carbon Dioxide Level 28 20-31 mmol/L Anion Gap 7 5-15 Blood Urea Nitrogen 13 9-23 mg/dL Creatinine 0.87 0.550-1.02 mg/dL Glomerular Filtration Rate Calc 79 >90 mL/min BUN/Creatinine Ratio 14.9 10.0-20.0 Serum Glucose 133 H 74-106 mg/dL Calcium Level 9.8 8.7-10.4 mg/dL Total Bilirubin 0.4 0.2-1.0 mg/dL Aspartate Amino Transferase (AST) 13 13-40 U/L Alanine Aminotransferase (ALT) 13 7-40 U/L Alkaline Phosphatase 127 H 46-116 U/L B-Type Natriuretic Peptide 56.79 0-100 pg/mL Total Protein 6.8 5.7-8.2 g/dL Albumin 4.4 3.2-4.8 g/dL Current Medications Medications (Trade) Dose Ordered Sig/Chelly Route Start Time Stop Time Status Last Admin Morphine Sulfate 4 mg ONCE ONCE IV 08/25/24 15:00 08/25/24 15:01 DC 08/25/24 16:14 Ondansetron HCl (Zofran) 4 mg ONCE ONCE IV 08/25/24 15:00 08/25/24 15:01 DC 08/25/24 16:14 The CBC and chemistry panel are within normal limits. The BNP is within normal limits. The patient was given morphine 4 mg IV push for the pain The patient was given Zofran 4 mg IV push for the nausea An IV Hep-Lock was established The patient was already taken aspirin for the pain The patient also received nitroglycerin x3 At this time, the patient was being admitted with a diagnosis of ongoing chest pain with acute coronary syndrome The patient was admitted. A cardiology consult will be obtained. Images Reviewed?: Images reviewed and evaluated by me Time of 1ST Reevaluation: 15:30 Reevaluation 1ST: Unchanged Patient Education/Counseling: Diagnosis, Treatment, Prognosis Family Education/Counseling: No Family Present Additional Information -Reviewed patient's previous visit(s): - The following tests were ordered, and results were reviewed by me:cbc,cmp, tropx3, ekg x3, ddimer, bnp, chest x-ray - Additional information was gathered from interviewing the following independent Historian: none - I reviewed and agreed with the following test results read by other provider: none - I discussed treatments and results with medical personnel and: patient Comprehensive systems review obtained and negative except for what is stated in the HPI. Departure 1 Departure Time of Disposition: 17:15 Impression: Primary Impression: Acute chest pain Additional Impression: Acute myocardial ischemia Disposition: 09 ADMITTED INPATIENT Admit to: Tele Condition: Fair Critical Care Note Critical Care Time?: Yes (45 min-critical care time only) Stability Stability form required: Yes Unstable for transfer: Telemetry monitoring (Telemetry monitoring required), ED Physician Assesment (Clinical assesment) Heart Score Heart Score: Heart Score Response (Comments) Value History Moderate Suspicious 1 EKG Repolarization Disturb 1 Age 45-64 1 Risk Factors 1 or 2 risk factors 1 Troponin Normal limit 0 Total 4 I personally scribed for JERAMY PETERSEN MD ([email or web address]) on 08/25/24 at 15:06. Electronically submitted by Silvestre Vargas ([email or web address]). JERAMY PETERSEN MD Aug 25, 2024 15:06
[2024-08-25 15:07] LABS: Basophils # (auto) 0.1 10 ^3/uL (0-0.2); Basophils % (auto) 0.6 % (0.0-2.0); Eosinophils # (auto) 0.3 10 ^3/uL (0-0.8); Hematocrit 44.9 % (36.0-46.0); Hemoglobin 14.8 g/dL (12.2-16.2); Lymphocytes # (auto) 3.2 10 ^3/uL (0.4-5.4); Lymphocytes % (auto) 32.7 % (10.0-50.0); Mean Corpuscular Hemoglobin 27.8 pg (28.0-32.0); Mean Corpuscular Hgb Conc. 33.1 g/dL (32.0-36.0); Mean Corpuscular Volume 83.9 fL (80.0-100.0); Monocytes # (auto) 0.4 10 ^3/uL (0-1.3); Monocytes % (auto) 3.5 % (0.0-12.0); Neutrophils % (auto) 60.2 % (37.0-80.0); Nucleated Red Blood Cells % 0.1 %; Platelet Count (auto) 217 10^3/uL (140-450); Red Blood Cells 5.35 10^6/uL (4.0-5.20); White Blood Cell 9.9 10^3/uL (4.4-10.8)
--- NOTE | 2024-08-25 15:23 | DVH ---
EXAM: XY CHEST TWO VIEWS ROUTINE CLINICAL HISTORY: cp COMPARISON: XY CHEST TWO VIEWS ROUTINE on DOS: 01/24/24 TECHNIQUE: Frontal and lateral view of the chest was obtained FINDINGS: Lines and Tubes: None Lungs: No focal consolidation. Pleura: No effusion. No pneumothorax. Cardiomediastinal contours: Unremarkable Pulmonary vasculature: Within normal limits. Bones: No acute osseous abnormality. IMPRESSION: 1. No acute cardiopulmonary disease. HS:Y
[2024-08-25 15:28] LABS: Alanine Aminotransferase 13 U/L (7-40); Albumin 4.4 g/dL (3.2-4.8); Anion Gap 7 (5-15); Aspartate Aminotransferase 13 U/L (13-40); BUN/Creatinine Ratio 14.9 (10.0-20.0); Blood Urea Nitrogen 13 mg/dL (9-23); Calcium 9.8 mg/dL (8.7-10.4); Carbon Dioxide 28 mmol/L (20-31); Chloride 107 mmol/L (98-107); Potassium 3.8 mmol/L (3.5-5.1); Sodium 142 mmol/L (136-145)
[2024-08-25 15:29] LABS: Alkaline Phosphatase 127 U/L (46-116); Bilirubin, Total 0.4 mg/dL (0.2-1.0); Glucose 133 mg/dL (74-106); Total Protein 6.8 g/dL (5.7-8.2)
--- NOTE | 2024-08-25 15:38 | ECG ---
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
[2024-08-25] MEDS: ONDANSETRON HCL 4 MG/2 ML VIAL IV ONE (16:14)
[2024-08-25] MEDS: MORPHINE SULFATE 4 MG/ML SYR/VIAL IV ONE (16:14)
[2024-08-25 16:21] VITALS: PULSE 69; RESP 16; O2SAT 99
[2024-08-25] MEDS ORDERED: MORPHINE SULFATE INJ 2 MG/ml SYRG IV PRN (17:15)
[2024-08-25] MEDS ORDERED: HYDROcodone-ACET 5/325MG TAB PO PRN (17:15)
[2024-08-25] MEDS ORDERED: ACETAMINOPHEN 325 MG TAB PO PRN (17:15)
[2024-08-25] MEDS ORDERED: NITROGLYCERIN 0.4 MG SL TAB SL PRN (17:15)
--- NOTE | 2024-08-25 17:31 | ECG ---
[facility] Test Date: 2024-08-25 Test Time: 17:28:24 Pat Name: FREEDOM FREED Department: ER Room: 0281T Gender: F Cryptologist: VALERIA : 1970 Requested By: JERAMY PETERSEN Order Number: [id number] Reading MD: Jose Perera Measurements Intervals [place] Rate: 64 P: 64 [place]: 137 QRS: 88 QRSD: 89 T: 38 QT: 408 QTc: 421 Interpretive Statements Sinus rhythm Biatrial enlargement Electronically Signed On 08-28-2024 17:40:19 PST by Jose Perera Please click the below link to view image of tracing.
[2024-08-25] MEDS: SODIUM CHLORIDE 0.9% 1,000 ML IV SCH (17:59)
[2024-08-25 18:50] VITALS: BP 158/70; PULSE 62; RESP 18; TEMP 97.7; O2SAT 99
[2024-08-25 21:00] VITALS: BP 164/78; PULSE 71; RESP 19; TEMP 97.7; O2SAT 99
[2024-08-25] MEDS: MORPHINE SULFATE INJ 2 MG/ml SYRG IV PRN (21:10)
[2024-08-25 23:13] VITALS: BP 140/66; PULSE 56; RESP 18; TEMP 95.5; O2SAT 98; O2SAT 99
--- NOTE | 2024-08-26 00:24 | DVHHP2 ---
Admitting Diagnosis: Chest Pain rule out UT History of Present Illness History Source: Patient Exam Limitations: No limitations HPI Mrs. Darline Sosa is a 54 yo female with a history of Angina, Anxiety, CAD, Anemia, CHF, COPD, Hypertension, Kidney Stones who presents with a chief co mplaint of left sided chest pain radiating to her left arm , left back side and jaw. Patient reports she took x 3 SL Nitroglycerine with no relief. Patient also endorses exertional dyspnea. Patient reports she called her apple picker who told her to go to the ED. Patient denies headaches, nausea, vomiting, fevers, chills, abdominal pain. Patient admitted for further evaluation. Home Meds Active Scripts Metoprolol Tartrate (Lopressor) 50 Mg Tab, 0.5 TAB PO BID for 30 Days, #30 TAB Prov:JONATHAN BYRD MD 03/24/24 Losartan Potassium (Losartan Potassium) 50 Mg Tab, 2 TAB PO BID for HTN for 30 Days, #120 TAB Prov:JONATHAN BYRD MD 03/24/24 Potassium Chloride (Klor-Con 8) 8 Meq Tab, 8 MEQ PO DAILY for SUPPLEMENT, #30 TAB Prov:JONATHAN BYRD MD 03/24/24 Hydrochlorothiazide W/Triamter (Triamterene/Hydrochloroth) 1 Cap Cap, 1 CAP PO DAILY for EDEMA/HTN, #60 CAP Prov:JONATHAN BYRD MD 03/24/24 Aspirin (Aspir-81) 81 Mg Tab, 1 TAB PO DAILY for 90 Days, #90 TAB 1 Refill Prov:ANNIE JACOBSON WINDLASSER 12/02/23 Reported Medications Clopidogrel Bisulfate (CLOPIDOGREL) 75 Mg Tab, 1 TAB PO DAILY for 30 Days, #30 03/22/24 Ezetimibe (Zetia) 10 Mg Tab, 1 TAB PO DAILY for 30 Days, #30 03/22/24 Albuterol Sulfate (Albuterol Sulfate) 0.083 % Neb, 1 VIAL NEB Q6HR PRN 12/02/23 Albuterol Sulfate (Albuterol Sulfate Hfa) 108 Mcg/Act Aer, 1 PUFF INH Q4HR PRN 12/02/23 Divalproex Sodium (Divalproex Sodium Dr) 500 Mg Tab, 250 MG PO UD Take 1 tablet (250 mg) by mouth every morning and 2 tablets (500 mg) by mouth at bedtime. 12/02/23 Cholecalciferol (Vitamin D) 1,000 Unit Tab, 1 TAB PO DAILY 12/02/23 Nitroglycerin (NTROSTAT SUBLINGUAL) 0.4 Mg Sl, 0.4 MG SL PRN for CHEST PAIN, TAB *MAY REPEAT EVERY 5 MINUTES X 3 TOTAL IF NO RELIEF, INITIATE ANALGESIC THERAPY. NOTIFY PHYSICIAN *Do not crush. 11/28/23 Hydrocodone-Acetaminophen (Hydrocodone Bitartrate/AC 10-325 mg) 1 Tab Tab, 1 TAB PO BIDP PRN for PAIN SCALE 7 THRU 10, TAB 11/28/23 Past Medical History Cardiac: CAD, CHF, HTN Pulmonary: COPD Central Nervous System: No pertinent Hx GI: No pertinent Hx Hemotology/Oncology: Anemia NOS Hepatobiliary: No pertinent Hx Psychiatric: Anxiety Musculoskeletal: No pertinent Hx Rheumotologic: No pertinent Hx Infectious Disease: No peritnent Hx ENT: No pertinent Hx Renal/: No pertinent Hx Endocrine: No pertinent Hx Dermatology: No pertinent Hx Others Kidney Stones Patient Family History: Cardiovascular disease G8 MOTHER, Cerebrovascular accident (CVA) G8 FATHER Diabetes mellitus G8 FATHER FH: schizophrenia FHx: myocardial infarction Smoker: No Hx (Negative) Alocohol: None Drugs: None Lives with: With family Domestic Violence: Neg Review of Systems Constitutional: No symptom reported Ears, Nose, & Throat: No symptom reported Eyes: No symptom reported Pulmonary/Respiratory: Dyspnea (exertional) Cardiovascular: Chest Pain Gastrointestinal: No symptom reported Genitourinary: No symptom reported Musculoskeletal: No symptom reported Skin: No symptom reported Psychiatric: No symptom reported Endocrine: No symptom reported Hemotologic/Lymphatic: No symptom reported H&P Exam Vital Signs Vital Signs Date Time Temp Pulse Resp B/P (MAP) Pulse Ox O2 Delivery O2 Flow Rate FiO2 08/25/24 21:10 60 19 158/74 08/25/24 21:00 97.7 99 97.7 08/25/24 18:30 Room Air 08/25/24 16:21 0 21 General Appeara: Well developed, Well nourished, Normal Appearance Head Exam: Normal inspection Neck Exam: Normal inspection, Non-tender, Normal alignment Eye Exam: bilateral eye Normal inspection, bilateral eye PERRL, bilateral eye EOMI Ear Exam: bilateral ear Auricle normal Nasal Exam: Normal inspection Mouth: Normal Inspection Pulmonary/Respiratory: Normal inspection, Normal breath sounds, Chest non- tender, Lungs clear Cardiovascular/Chest: Normal inspection, Regular rate, Normal Rhythm Peripheral Pulses: 2+ dorsalis pedis (R), 2+ dorsalis pedis (L), 2+ Radial (R), 2+ Radial (L) Abdominal Exam: Normal bowel sounds, Soft, No tenderness Rectal Exam: Deferred Back Exam: Normal inspection Pelvic Exam: Not done SENIOR COMMISSIONS ANALYST Exam: Normal hearing, Normal speech, PERRL Motor/Sensory: Normal sensory function, Normal motor function Neuro/Mental St: Alert, Oriented Appearance: Appropriate appearance, Appropriate insight Eye contact/ Speech: Cooperative, Good eye contact, Normal speech Thoughts/Psych: Normal thought pattern Skin Exam: Normal inspection, Normal color, Warm/dry Labs/Xrays Labs Test 08/25/24 17:42 08/25/24 14:52 Range/Units Troponin I High Sensitivity 3 L </=34 ng/L White Blood Count 9.9 4.4-10.8 10^3/uL Red Blood Count 5.35 H 4.0-5.20 10^6/uL Hemoglobin 14.8 12.2-16.2 g/dL Hematocrit 44.9 36.0-46.0 % Mean Corpuscular Volume 83.9 80.0-100.0 fL Mean Corpuscular Hemoglobin 27.8 L 28.0-32.0 pg Mean Corpuscular Hemoglobin Concent 33.1 32.0-36.0 g/dL Red Cell Distribution Width 14.0 11.8-14.3 % Platelet Count 217 140-450 10^3/uL Mean Platelet Volume 9.2 6.9-10.8 fL Neutrophils (%) (Auto) 60.2 37.0-80.0 % Lymphocytes (%) (Auto) 32.7 10.0-50.0 % Monocytes (%) (Auto) 3.5 0.0-12.0 % Eosinophils (%) (Auto) 3.0 0.0-7.0 % Basophils (%) (Auto) 0.6 0.0-2.0 % Neutrophils # (Auto) 6.0 1.6-8.6 10 ^3/uL Lymphocytes # (Auto) 3.2 0.4-5.4 10 ^3/uL Monocytes # (Auto) 0.4 0-1.3 10 ^3/uL Eosinophils # (Auto) 0.3 0-0.8 10 ^3/uL Basophils # (Auto) 0.1 0-0.2 10 ^3/uL Nucleated Red Blood Cells 0.1 % D-Dimer, Quantitative 0.39 0.0-0.49 mg/L FEU Sodium Level 142 136-145 mmol/L Potassium Level 3.8 3.5-5.1 mmol/L Chloride Level 107 98-107 mmol/L Carbon Dioxide Level 28 20-31 mmol/L Anion Gap 7 5-15 Blood Urea Nitrogen 13 9-23 mg/dL Creatinine 0.87 0.550-1.02 mg/dL Glomerular Filtration Rate Calc 79 >90 mL/min BUN/Creatinine Ratio 14.9 10.0-20.0 Serum Glucose 133 H 74-106 mg/dL Calcium Level 9.8 8.7-10.4 mg/dL Total Bilirubin 0.4 0.2-1.0 mg/dL Aspartate Amino Transferase (AST) 13 13-40 U/L Alanine Aminotransferase (ALT) 13 7-40 U/L Alkaline Phosphatase 127 H 46-116 U/L B-Type Natriuretic Peptide 56.79 0-100 pg/mL Total Protein 6.8 5.7-8.2 g/dL Albumin 4.4 3.2-4.8 g/dL Assessment/Plan Problem List: (1) Acute chest pain Plan This is a 54 yo female with known history of Anemia, CHF, CAD, COPD, hypertension, anxiety who presents to the hospital with chest pain. 1. Chest pain rule out UT Plan: Admit Telemetry unit Cardiology consultation, 2D echocardiogram, serial troponin levels, ASA, Statin Lovenox PA Discussed all above with patient who verbalized agreement and understanding of care plan. All questions were answered. Discussed assessment and care plan with supervising/admitting MD. Plan discussed with: Patient, Other Code Visit Code Visit Total Time (mins): 45 NATALIA MANUEL Aug 26, 2024 00:24
[2024-08-26 01:00] VITALS: BP 139/49; PULSE 58; RESP 18; TEMP 97.4; O2SAT 98
[2024-08-26] MEDS: ONDANSETRON HCL 4 MG/2 ML VIAL IV PRN (04:53)
[2024-08-26 05:00] VITALS: BP 155/64; PULSE 67; RESP 18; TEMP 97.6; O2SAT 98
--- NOTE | 2024-08-26 07:27 | ECG ---
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
[2024-08-26] MEDS: ENOXAPARIN SOD 40 MG/0.4 ML SYRINGE SC SCH (08:50)
[2024-08-26] MEDS: ASPirin 81 mg TAB PO SCH (08:51)
[2024-08-26 09:00] VITALS: BP 159/60; PULSE 61; RESP 20; TEMP 97.6; O2SAT 95
[2024-08-26 10:20] VITALS: PULSE 55; RESP 18; O2SAT 94
--- NOTE | 2024-08-26 12:05 | DVHINCON2 ---
Date of service: Aug 26, 2024 History of Present Illness 54 yo F obesity, htn, cad s/p pci, admitted for chest pain and gas after eating a burger. trops are -. pt called my office when she got to ER. Past Medical History reviewed Family History: Cardiovascular disease G8 MOTHER, Cerebrovascular accident (CVA) G8 FATHER Diabetes mellitus G8 FATHER FH: schizophrenia FHx: myocardial infarction Allergies: Coded Allergies: Atorvastatin (Verified Allergy, Unknown, 01/24/24) Home Meds Active Scripts Metoprolol Tartrate (Lopressor) 50 Mg Tab, 0.5 TAB PO BID for 30 Days, #30 TAB Prov:JONATHAN BYRD MD 03/24/24 Losartan Potassium (Losartan Potassium) 50 Mg Tab, 2 TAB PO BID for HTN for 30 Days, #120 TAB Prov:JONATHAN BYRD MD 03/24/24 Potassium Chloride (Klor-Con 8) 8 Meq Tab, 8 MEQ PO DAILY for SUPPLEMENT, #30 TAB Prov:JONATHAN BYRD MD 03/24/24 Hydrochlorothiazide W/Triamter (Triamterene/Hydrochloroth) 1 Cap Cap, 1 CAP PO DAILY for EDEMA/HTN, #60 CAP Prov:JONATHAN BYRD MD 03/24/24 Aspirin (Aspir-81) 81 Mg Tab, 1 TAB PO DAILY for 90 Days, #90 TAB 1 Refill Prov:ANNIE JACOBSON CURRENCY EXAMINER 12/02/23 Reported Medications Clopidogrel Bisulfate (CLOPIDOGREL) 75 Mg Tab, 1 TAB PO DAILY for 30 Days, #30 03/22/24 Ezetimibe (Zetia) 10 Mg Tab, 1 TAB PO DAILY for 30 Days, #30 03/22/24 Albuterol Sulfate (Albuterol Sulfate) 0.083 % Neb, 1 VIAL NEB Q6HR PRN 12/02/23 Albuterol Sulfate (Albuterol Sulfate Hfa) 108 Mcg/Act Aer, 1 PUFF INH Q4HR PRN 12/02/23 Divalproex Sodium (Divalproex Sodium Dr) 500 Mg Tab, 250 MG PO UD Take 1 tablet (250 mg) by mouth every morning and 2 tablets (500 mg) by mouth at bedtime. 12/02/23 Cholecalciferol (Vitamin D) 1,000 Unit Tab, 1 TAB PO DAILY 12/02/23 Nitroglycerin (NTROSTAT SUBLINGUAL) 0.4 Mg Sl, 0.4 MG SL PRN for CHEST PAIN, TAB *MAY REPEAT EVERY 5 MINUTES X 3 TOTAL IF NO RELIEF, INITIATE ANALGESIC THERAPY. NOTIFY PHYSICIAN *Do not crush. 11/28/23 Hydrocodone-Acetaminophen (Hydrocodone Bitartrate/AC 10-325 mg) 1 Tab Tab, 1 TAB PO BIDP PRN for PAIN SCALE 7 THRU 10, TAB 11/28/23 Current Medications Current Medications Medications (Trade) Dose Ordered Sig/Chelly Route PRN Reason Start Time Stop Time Status Last Admin Sodium Chloride 1,000 ml @ 120 mls/hr Q8H20M IV 08/25/24 17:15 08/26/24 08:52 Acetaminophen/ Hydrocodone Bitart ([place] 5/325MG Tab) 1 tab Q4HP PRN PO MODERATE PAIN (4-6 PAIN SCALE) 08/25/24 17:15 Ondansetron HCl (Zofran) 4 mg Q4HP PRN IV NAUSEA / VOMITING 08/25/24 17:15 08/26/24 08:50 Enoxaparin Sodium (Lovenox) 40 mg DAILY SC 08/26/24 10:00 08/26/24 08:50 Acetaminophen (Tylenol Tablet) 650 mg Q6HP PRN PO PAIN SCALE 1-3 OR TEMP>100.4 08/25/24 17:15 Morphine Sulfate 2 mg Q4HPRN PRN IV SEVERE PAIN (7-10 PAIN SCALE) 08/25/24 17:15 08/26/24 08:52 Nitroglycerin (Ntrostat Sublingual) 0.4 mg Q5MINP PRN SL FOR CHEST PAIN 08/25/24 17:15 Morphine Sulfate 2 mg Q30M PRN IV FOR CHEST PAIN 08/25/24 17:15 Aspirin 81 mg DAILY PO 08/26/24 10:00 08/26/24 08:51 Atorvastatin Calcium (Lipitor) 40 mg HS PO 08/26/24 22:00 08/26/24 10:26 DC Review of Systems 10 pt ros otherwise negative Vital Signs Vital Signs Date Time Temp Pulse Resp B/P (MAP) Pulse Ox O2 Delivery O2 Flow Rate FiO2 08/26/24 10:20 55 18 94 Room Air* 0 21 08/26/24 09:00 97.6 159/60 (93) 97.6 Physical Exam nad s1 s2 rrr ctab soft nt/nd no edema Labs/Diagnostic Data Labs Test 08/26/24 06:57 08/25/24 14:52 Range/Units Troponin I High Sensitivity 3 L </=34 ng/L White Blood Count 9.9 4.4-10.8 10^3/uL Red Blood Count 5.35 H 4.0-5.20 10^6/uL Hemoglobin 14.8 12.2-16.2 g/dL Hematocrit 44.9 36.0-46.0 % Mean Corpuscular Volume 83.9 80.0-100.0 fL Mean Corpuscular Hemoglobin 27.8 L 28.0-32.0 pg Mean Corpuscular Hemoglobin Concent 33.1 32.0-36.0 g/dL Red Cell Distribution Width 14.0 11.8-14.3 % Platelet Count 217 140-450 10^3/uL Mean Platelet Volume 9.2 6.9-10.8 fL Neutrophils (%) (Auto) 60.2 37.0-80.0 % Lymphocytes (%) (Auto) 32.7 10.0-50.0 % Monocytes (%) (Auto) 3.5 0.0-12.0 % Eosinophils (%) (Auto) 3.0 0.0-7.0 % Basophils (%) (Auto) 0.6 0.0-2.0 % Neutrophils # (Auto) 6.0 1.6-8.6 10 ^3/uL Lymphocytes # (Auto) 3.2 0.4-5.4 10 ^3/uL Monocytes # (Auto) 0.4 0-1.3 10 ^3/uL Eosinophils # (Auto) 0.3 0-0.8 10 ^3/uL Basophils # (Auto) 0.1 0-0.2 10 ^3/uL Nucleated Red Blood Cells 0.1 % D-Dimer, Quantitative 0.39 0.0-0.49 mg/L FEU Sodium Level 142 136-145 mmol/L Potassium Level 3.8 3.5-5.1 mmol/L Chloride Level 107 98-107 mmol/L Carbon Dioxide Level 28 20-31 mmol/L Anion Gap 7 5-15 Blood Urea Nitrogen 13 9-23 mg/dL Creatinine 0.87 0.550-1.02 mg/dL Glomerular Filtration Rate Calc 79 >90 mL/min BUN/Creatinine Ratio 14.9 10.0-20.0 Serum Glucose 133 H 74-106 mg/dL Calcium Level 9.8 8.7-10.4 mg/dL Total Bilirubin 0.4 0.2-1.0 mg/dL Aspartate Amino Transferase (AST) 13 13-40 U/L Alanine Aminotransferase (ALT) 13 7-40 U/L Alkaline Phosphatase 127 H 46-116 U/L B-Type Natriuretic Peptide 56.79 0-100 pg/mL Total Protein 6.8 5.7-8.2 g/dL Albumin 4.4 3.2-4.8 g/dL Assessment r/o ACS HTN HL obesity ckd cad s/p pci Plan/Recommendation bp 180s/ 90s on ER visit cont bp meds acs ruled out gi cocktail dc home when medically stable Plan discussed with: Patient ANJALI ESPAÑA MD Aug 26, 2024 12:05
[2024-08-26] MEDS ORDERED: NITROGLYCERIN 0.4 MG SL TAB SL PRN (13:45)
[2024-08-26] MEDS ORDERED: HYDROcodone-ACET 10/325MG TAB PO PRN (13:45)
[2024-08-26 15:26] VITALS: BP 159/60; PULSE 61; RESP 20; TEMP 97.6; O2SAT 95
--- NOTE | 2024-08-26 16:13 | DVHDS2 ---
Discharge Summary Date of Admission Aug 25, 2024 at 17:15 Date of Discharge: Aug 26, 2024 Labs/Diagnostic Data: Laboratory Results Test 08/26/24 06:57 08/25/24 14:52 Troponin I High Sensitivity 3 ng/L (</=34) White Blood Count 9.9 10^3/uL (4.4-10.8) Red Blood Count 5.35 10^6/uL (4.0-5.20) Hemoglobin 14.8 g/dL (12.2-16.2) Hematocrit 44.9 % (36.0-46.0) Mean Corpuscular Volume 83.9 fL (80.0-100.0) Mean Corpuscular Hemoglobin 27.8 pg (28.0-32.0) Mean Corpuscular Hemoglobin Concent 33.1 g/dL (32.0-36.0) Red Cell Distribution Width 14.0 % (11.8-14.3) Platelet Count 217 10^3/uL (140-450) Mean Platelet Volume 9.2 fL (6.9-10.8) Neutrophils (%) (Auto) 60.2 % (37.0-80.0) Lymphocytes (%) (Auto) 32.7 % (10.0-50.0) Monocytes (%) (Auto) 3.5 % (0.0-12.0) Eosinophils (%) (Auto) 3.0 % (0.0-7.0) Basophils (%) (Auto) 0.6 % (0.0-2.0) Neutrophils # (Auto) 6.0 10 ^3/uL (1.6-8.6) Lymphocytes # (Auto) 3.2 10 ^3/uL (0.4-5.4) Monocytes # (Auto) 0.4 10 ^3/uL (0-1.3) Eosinophils # (Auto) 0.3 10 ^3/uL (0-0.8) Basophils # (Auto) 0.1 10 ^3/uL (0-0.2) Nucleated Red Blood Cells 0.1 % D-Dimer, Quantitative 0.39 mg/L FEU (0.0-0.49) Sodium Level 142 mmol/L (136-145) Potassium Level 3.8 mmol/L (3.5-5.1) Chloride Level 107 mmol/L (98-107) Carbon Dioxide Level 28 mmol/L (20-31) Anion Gap 7 (5-15) Blood Urea Nitrogen 13 mg/dL (9-23) Creatinine 0.87 mg/dL (0.550-1.02) Glomerular Filtration Rate Calc 79 mL/min (>90) BUN/Creatinine Ratio 14.9 (10.0-20.0) Serum Glucose 133 mg/dL (74-106) Calcium Level 9.8 mg/dL (8.7-10.4) Total Bilirubin 0.4 mg/dL (0.2-1.0) Aspartate Amino Transferase (AST) 13 U/L (13-40) Alanine Aminotransferase (ALT) 13 U/L (7-40) Alkaline Phosphatase 127 U/L (46-116) B-Type Natriuretic Peptide 56.79 pg/mL (0-100) Total Protein 6.8 g/dL (5.7-8.2) Albumin 4.4 g/dL (3.2-4.8) Other Laboratory Tests 08/25/24 14:52 Brief Hx & Hospital Course: 54-year-old female with a known history of coronary artery disease status post PCI, COPD, congestive heart failure, hypertension, dyslipidemia initially presented to the hospital with chest pain after eating a burger. Patient was eventually admitted troponins were negative. Cardiology was consulted who cleared the patient to be discharged. Patient was being discharged under stable condition. Patient was currently stated that she was chest pain free. Condition at Discharge: Stable Final Diagnosis/Problems List 1. Chest pain PR ruled out 2. Coronary artery disease status post PCI 3. Hypertension 4. Dyslipidemia 5.COPD Discharge Disposition: Home SNF Discharge Will this Physician continue t: No Discharge Instruct/Medications Diet: Cardiac 2g Na,low cholest Activity: no driving while on narcotics Activity comment: No driving while you RN on narcotics Follow Up/Referral: Follow up with the PCP in 1-2 weeks Medications: Whom home meds Discharge Statement: "Patient was advised to return to the ER or call 911 if any headaches, dizziness, shortness of breath, chest pain, abdominal pain, bleeding, fevers, or worsening of medical condition. Patient was counseled about treatment plan, medications, possible side effects, patientverbalized understanding. All questions were answered to the best of my ability. This discharge took greater then 30 minutes in planning, reviewing documentation, counseling the patient, and discussing with other team members." ASSESSMENT ASSESSMENT Assessment chest pain PR rule out Date of Service: Aug 26, 2024 Billing Provider: EMELI MEJÍA MD Common Visit Codes: NOT BILLABLE EMELI MEJÍA MD Aug 26, 2024 16:13
[2024-08-26] MEDS ORDERED: LOSARTAN POTASSIUM 50 MG TAB PO SCH (22:00)
[2024-08-26] MEDS ORDERED: ATORVASTATIN 20 MG TAB PO SCH (22:00)
[2024-08-26] MEDS ORDERED: METOPROLOL TARTRATE 50 MG TAB PO SCH (22:00)
[2024-08-27] MEDS ORDERED: EZETIMIBE 10 MG TAB PO SCH (10:00)
[2024-08-27] MEDS ORDERED: POTASSIUM CHLORIDE 8 MEQ TAB PO SCH (10:00)
[2024-08-27] MEDS ORDERED: CHOLECALCIFEROL (VITD3) 1,000UNIT=25mCg TAB PO SCH (10:00)
[2024-08-27] MEDS ORDERED: CLOPIDOGREL BISULFATE 75 MG TAB PO SCH (10:00)
[2024-08-27] MEDS ORDERED: ASPirin-EC 81 mg tab PO SCH (10:00)
== END 2024-08-26 15:50 | disposition home or self-care (01) | DRG 198 ==
LOC: ER 14:35 → OVERFLOW 17:15 → TELE-WESTW 23:13
PROVIDERS: ADMIT Internal Medicine; ATTEND Internal Medicine
DX: I25.10 Atherosclerotic heart disease of native coronary artery without angina pectoris (principal); E11.22 Type 2 diabetes mellitus with diabetic chronic kidney disease; I50.9 Heart failure, unspecified; D64.9 Anemia, unspecified; E66.9 Obesity, unspecified; E78.5 Hyperlipidemia, unspecified; I11.0 Hypertensive heart disease with heart failure; F17.210 Nicotine dependence, cigarettes, uncomplicated; F41.9 Anxiety disorder, unspecified; J44.9 Chronic obstructive pulmonary disease, unspecified; Z88.8 Allergy status to other drugs, medicaments and biological substances; Z79.899 Other long term (current) drug therapy; Z79.82 Long term (current) use of aspirin; Z79.891 Long term (current) use of opiate analgesic; Z90.710 Acquired absence of both cervix and uterus; Z90.49 Acquired absence of other specified parts of digestive tract; Z87.442 Personal history of urinary calculi; Z86.73 Personal history of transient ischemic attack (TIA), and cerebral infarction without residual deficits; Z81.8 Family history of other mental and behavioral disorders; Z82.49 Family history of ischemic heart disease and other diseases of the circulatory system; Z82.3 Family history of stroke; Z83.3 Family history of diabetes mellitus; Z98.61 Coronary angioplasty status; Z68.41 Body mass index [BMI] 40.0-44.9, adult
CPT/HCPCS: 36415; 71046; 80053; 83880; 84484; 85025; 85379; 93005; 93306; 99291; G0378; J2405